=== PATIENT | female | born 1965 | race Caucasian/White ===

== ENCOUNTER 2023-11-15 07:56 | Emergency (ER) | payer OTHER, SELFPAY ==
[2023-11-15 08:00] VITALS: BP 149/85; PULSE 78; RESP 16; TEMP 36.7; O2SAT 97; BMI 25.7
--- NOTE | 2023-11-15 08:47 | ED_ITS ---
HPI - General Adult General Chief complaint: Dizziness/Vertigo Stated complaint: Blood pressure issues Time Seen by Provider: 11/15/23 08:19 History of Present Illness HPI narrative: This 58-year-old female comes in reporting vertigo symptoms with associated nausea and vomiting. She also reports a headache. She states that these symptoms began several weeks ago when she had a root canal. This was followed by a temporary crown that was uncomfortable for her and needed to be adjusted in at size. She has her permanent crown in place now and did get in to see an crayon painter with imaging studies. They report there was that there was no findings that were problematic when evaluating her teeth. She continues to have discomfort in her left upper row of teeth. She reports vertigo symptoms and tinnitus but does not have any hearing loss. She is not displaying any neurologic deficit. She states that she has been taking Tylenol and does get relief with this medication with regard to her headache. Related Data Home Medications Medication Instructions Recorded Confirmed acetaminophen 325 mg tablet 1,000 mg PO Q6H PRN 11/15/23 11/15/23 (Tylenol) lisinopril 20 1 tab PO DAILY 11/15/23 11/15/23 mg-hydrochlorothiazide 12.5 mg tablet loratadine 10 mg tablet 10 mg PO DAILY 11/15/23 11/15/23 Previous Rx's Medication Instructions Recorded meclizine 25 mg tablet 25 mg PO QID #20 tabs 11/15/23 methylprednisolone 4 mg tablets in See Rx Instructions PO .COMPLEX 11/15/23 a dose pack (Medrol (Josh)) #21 ea ondansetron HCl 4 mg tablet 4 mg PO Q6H #20 tabs 11/15/23 Allergies Allergy/AdvReac Type Severity Reaction Status Date / Time tree and shrub pollen Allergy Mild runny Verified 11/15/23 08:14 nose, sneezing dust Allergy Mild runny Uncoded 11/15/23 08:14 nose, sneeze Review of Systems Status of ROS: Reports: 10 or more systems reviewed and unremarkable except as noted in History and below Narrative: Constitutional: No fevers, no weight gain or loss. Eyes: No discharge. No vision changes. HENT: No congestion, no sore throat, no ear pain. Cardiovascular: No chest pain, no palpitations. Respiratory: No shortness of breath, no wheezes, no cough. Gastrointestinal: No abdominal pain, no vomiting, no diarrhea. Genitourinary: No dysuria, no hematuria. Musculoskeletal: Normal range of motion. Skin: No rashes, no pruritis. Neurological: No weakness, sensory change, speech change. Vertigo symptoms with tinnitus as described above. Endo/Heme/Allergies: No bruising or bleeding. No polydipsia. Pysch: no suicidality, no anxiety, no insomnia. All other systems reviewed and are negative. Exam Narrative: Exam Narrative: Constitutional: Well-developed, well-nourished, no acute distress. HEENT: Normocephalic, atraumatic. Neck: Normal range of motion. Nontender. Supple. Heart: Regular. No murmurs. Normal rate. Intact distal pulses. Lungs: Clear to auscultation. No chest discomfort. No wheezes, rhonchi, or rales. Abdomen: Normal bowel sounds. Nontender. No rebound tenderness. Genitalia: Deferred. Back: No midline tenderness. Normal range of motion. Extremities: Normal range of motion. No injury. Skin: Intact. No rash. Warm. No erythema or pallor. Neurologic: No altered sensation. No weakness. Alert and oriented. No nystagmus. Tongue is midline. No facial asymmetry. [id number] is normal. No pronator drift. Telecommunication Lines Repairer strength is equal bilaterally. She is able to raise each leg to my hand. Psychiatric: No suicidality. No anxiety or depression. No insomnia. Nursing notes and vitals signs are reviewed. Const: Vital Signs, click to edit/add: Vital Signs - 24 hr 11/15/23 08:00 Temperature 98.0 F Pulse Rate [Right Pulse Oximeter] 78 Respiratory Rate 16 Blood Pressure [Ri ght Upper Arm] 149/85 H Pulse Oximetry 97 Oxygen Delivery Me thod Room Air Course Vital Signs Vital signs: Initial Vital Signs Temperature 98.0 F 11/15/23 08:00 Temperature Source Temporal Artery Scan 11/15/23 08:00 Pulse Rate 78 11/15/23 08:00 Respiratory Rate 16 11/15/23 08:00 Blood Pressure 149/85 H 11/15/23 08:00 Blood Pressure Mean 106 H 11/15/23 08:00 Blood Pressure Position Sitting 11/15/23 08:00 Pulse Oximetry 97 11/15/23 08:00 Oxygen Delivery Method Room Air 11/15/23 08:00 Vital Signs Temperature 98.0 F 11/15/23 08:00 Pulse Rate 78 11/15/23 08:00 Respiratory Rate 16 11/15/23 08:00 Blood Pressure 149/85 H 11/15/23 08:00 Pulse Oximetry 97 11/15/23 08:00 Oxygen Delivery Method Room Air 11/15/23 08:00 Temperature 98.0 F 11/15/23 08:00 Pulse Rate 78 11/15/23 08:00 Respiratory Rate 16 11/15/23 08:00 Blood Pressure 149/85 H 11/15/23 08:00 Pulse Oximetry 97 11/15/23 08:00 Oxygen Delivery Method Room Air 11/15/23 08:00 Medical Decision Making MDM Narrative Medical decision making narrative: This patient comes in reporting vertigo and tinnitus with associated nausea and some vomiting since having dental work done several weeks ago. I did discuss common causes of vertigo and indicated that Meniere's disease may explain some of these symptoms however her vertigo is not episodic but rather more constant and relieved when remaining still. She does not also report any hearing loss and her tinnitus is not unilateral. I did discuss lab and imaging options with the patient but indicated low diagnostic value with regard to these particular symptoms. In a process of shared decision making the patient declined any studies at this time. I did advise her to return to her dentist as she continues to have symptoms with her teeth. I also provided prescription for meclizine, Zofran, and Medrol Dosepak with hopes that these will help quell her symptoms. Discharge Plan Discharge Clinical Impression: Vertigo Patient Disposition: Home, Self-Care Condition: Stable Additional Instructions: Take medications as needed and indicated. Follow up with dentist and MD for ongoing management. Return if worsening. Prescriptions: New ondansetron HCl 4 mg tablet 4 mg PO Q6H Qty: 20 0RF meclizine 25 mg tablet 25 mg PO QID Qty: 20 0RF methylprednisolone [Medrol (Josh)] 4 mg tablets,dose pack See Rx Instructions .ROUTE .COMPLEX Qty: 21 0RF Rx Instructions: orally per package directions No Action loratadine 10 mg tablet 10 mg PO DAILY acetaminophen [Tylenol] 325 mg tablet 1,000 mg PO Q6H PRN lisinopril-hydrochlorothiazide 20-12.5 mg tablet 1 tab PO DAILY Stand Alone Forms: [facility] Info Instructions
== END 2023-11-15 09:04 | disposition home or self-care (01) ==
PROVIDERS: Emergency Provider Emergency Medicine Emergency Medical Services; PCP Family Medicine
DX: R42 Dizziness and giddiness (principal)
CPT/HCPCS: 99283; 99284